=== PATIENT | female | born 1955 | race Caucasian/White ===

== ENCOUNTER 2021-10-02 13:16 | Emergency (ER) | payer OTHER ==
[~2021-10-02 13:16] MED LIST: NORCO 7.5-3251 EACH PO
[2021-10-02 13:49] LABS: HEMOGLOBIN 14.4 gm/dl (12.3-15.3); RED BLOOD COUNT 4.58 M/UL (4.00-5.10); WHITE BLOOD COUNT 7.6 K/UL (4.5-11.0)
== END 2021-10-02 17:17 | disposition home or self-care (01) ==
LOC: ER1 13:16
PROVIDERS: Emergency Medicine
DX: R10.9 Unspecified abdominal pain (principal); I10 Essential (primary) hypertension
CPT/HCPCS: 80053; 81001; 83690; 85025; 99284

== ENCOUNTER → 2021-10-10 | Outpatient (CLI) | payer OTHER | LOC: MRI 09:50 | DX: M54.50 Low back pain, unspecified (principal); M48.061 Spinal stenosis, lumbar region without neurogenic claudication; M48.07 Spinal stenosis, lumbosacral region; M47.816 Spondylosis without myelopathy or radiculopathy, lumbar region | CPT/HCPCS: 72158; A9577 ==